=== PATIENT | female | born 1995 | race Caucasian/White ===

== ENCOUNTER 2018-12-18 21:23 | Emergency (ER) | payer MEDICAID ==
[~2018-12-18] VITALS: Ht 162.6 cm; Wt 104.3 kg
[2018-12-18 21:27] VITALS: BP 133/76
--- NOTE | 2018-12-18 21:43 | NUR ---
PT TAKEN TO BED 8
--- NOTE | 2018-12-18 21:50 | NUR ---
X-RAY AT BEDSIDE.
--- NOTE | 2018-12-18 21:52 | NUR ---
PT ED C/O ANXIETY X TODAY. PT REPORTS PAIN TO L SIDED CHEST UPON INSPIRATION. NO S/S OF DISTRESS. RESPIRATIONS EVEN AND UNLABORED. PT PLACED IN BED, PENDING MD GARDNER. PMH--DENIES
[2018-12-18 22:28] VITALS: BP 133/76
--- NOTE | 2018-12-18 22:29 | NUR ---
Patient discharged with v/s stable. Written and verbal after care instructions given and explained. Patient verbalized understanding. Ambulatory with steady gait. All questions addressed prior to discharge. Advised to follow up with PMD.
== END 2018-12-18 22:29 | disposition home or self-care (01) ==
LOC: MED 21:23
DX: R07.89 Other chest pain (principal); R06.02 Shortness of breath; F41.9 Anxiety disorder, unspecified
CPT/HCPCS: 71045; 99283; Q0092; 93005

== ENCOUNTER 2019-02-25 12:38 | Emergency (ER) | payer MEDICAID ==
[~2019-02-25] VITALS: Ht 162.6 cm; Wt 117.9 kg
[2019-02-25 13:17] VITALS: BP 129/58
--- NOTE | 2019-02-25 13:33 | NUR ---
PT AMBULATED TO BED10
--- NOTE | 2019-02-25 13:40 | NUR ---
PT C/O FEELING COLD AND HOT FLUSHES, N/V/D, HEADACHE 07/09 x 3 days. Abd sft, round, nontender, bowel sounds present x 4 quadrants. Denies CP/SOB. Bed in low position/locked, placed on monitor, urine obtained at this time.
--- NOTE | 2019-02-25 14:10 | NUR ---
PER DR VELASQUEZ, DO NOT START IV, HE WILL SWITCH THE ROUTE OF THE MEDICATIONS
[2019-02-25] MEDS ORDERED: ONDANSETRON 4 MG/2 ML VIAL IVP ONE (14:15)
[2019-02-25] MEDS ORDERED: KETOROLAC 30 MG/ML VIAL IM ONE ×2 (14:20→15:00)
[2019-02-25] MEDS ORDERED: NACL 0.9% 1,000 ML IV ONE (14:45)
[2019-02-25] MEDS ORDERED: ONDANSETRON 4 MG ODT PO ONE (15:00)
--- NOTE | 2019-02-25 15:07 | NUR ---
LAB AT BEDSIDE
[2019-02-25 15:40] LABS: BASOPHILS % (AUTO) 0.3 % (0.0-2.0); EOSINOPHILS # (AUTO) 0.1 K/uL (0-0.4); EOSINOPHILS % (AUTO) 1.7 % (0.0-4.0); HEMATOCRIT 39.6 % (36-48); HEMOGLOBIN 13.4 g/dL (12.0-16.0); LYMPHOCYTES # (AUTO) 1.8 K/uL (2.5-16.5); LYMPHOCYTES % (AUTO) 28.2 % (20.5-51.1); MEAN CORPUSCULAR HEMOGLOBIN 33 pg (27-31); MEAN CORPUSCULAR HGB CONC 34 g/dL (33-37); MEAN CORPUSCULAR VOLUME 96.5 fL (80-94); MONOCYTES # (AUTO) 0.5 K/uL (0.8-1.0); MONOCYTES % (AUTO) 7.4 % (1.7-9.3); NEUTROPHILS % (AUTO) 62.4 % (42.2-75.2); PLATELET COUNT (AUTO) 241 K/uL (140-450); RED BLOOD CELL COUNT(AUTO) 4.11 MIL/uL (4.20-5.40); RED CELL DISTRIBUTION WIDTH 13.4 % (11.6-13.7); WHITE BLOOD COUNT (AUTO) 6.4 K/uL (4.8-10.8)
[2019-02-25 15:47] LABS: ANION GAP 12.5 (8-16); CARBON DIOXIDE 25.4 mmol/L (21-32); CREATININE 0.7 mg/dL (0.6-1.3); POTASSIUM 3.9 mmol/L (3.5-5.1)
[2019-02-25 15:57] LABS: ALBUMIN 3.2 g/dL (3.4-5.0); TOTAL BILIRUBIN 0.1 mg/dL (0.0-1.0)
--- NOTE | 2019-02-25 16:09 | NUR ---
PT RESTING IN BED, PT STATES MEDICATION PROVIDED RELIEF, PAIN LEVEL 2/10 AT THIS TIME.
[2019-02-25 16:18] VITALS: BP 125/70
--- NOTE | 2019-02-25 16:18 | NUR ---
Patient discharged with v/s stable. Written and verbal after care instructions given and explained. Patient alert, oriented and verbalized understanding of instructions. Ambulatory with steady gait. All questions addressed prior to discharge. ID band removed. Patient advised to follow up with PMD. Rx of ZOFRAN, LOPERAMIDE, TYLENOL given. Patient educated on indication of medication including possible reaction and side effects. Opportunity to ask questions provided and answered.
== END 2019-02-25 16:18 | disposition home or self-care (01) ==
LOC: MED 12:38
DX: R11.2 Nausea with vomiting, unspecified (principal); R10.31 Right lower quadrant pain; R19.7 Diarrhea, unspecified
CPT/HCPCS: 36415; 74176; 80053; 81002; 81025; 83690; 85025; 96372; 99284; J1885; Q0162; J2405

== ENCOUNTER 2023-12-10 21:16 | Emergency (ER) | payer MEDICAID ==
[~2023-12-10] VITALS: Ht 162.6 cm; Wt 130.6 kg
[2023-12-10 21:30] VITALS: BP_SYST 12; BP_SYST 124; BP_DIAS 79; PULSE 78; RESP 16; TEMP 98.6; O2SAT 98
[2023-12-10] MEDS ORDERED: WATER STERILE 10 ML MC ONE (22:18)
[2023-12-10] MEDS ORDERED: methylPREDNISolone SS 125 MG/2 ML VIAL ONE (22:18)
[2023-12-10] MEDS: methylPREDNISolone SS 125 MG in WATER STERILE 2 ML IM ONE (22:26)
[2023-12-10 22:32] VITALS: BP 123/77; PULSE 73; RESP 16
[2023-12-10 22:51] VITALS: O2SAT 98
[2023-12-10 22:51] LABS: BASOPHILS % (AUTO) 0.2 % (0.0-2.0); EOSINOPHILS # (AUTO) 0.1 K/uL (0-0.4); HEMATOCRIT 40.3 % (36-48); HEMOGLOBIN 13.8 g/dL (12.0-16.0); LYMPHOCYTES # (AUTO) 2.4 K/uL (2.5-16.5); LYMPHOCYTES % (AUTO) 31.3 % (20.5-51.1); MEAN CORPUSCULAR HEMOGLOBIN 33 pg (27-31); MEAN CORPUSCULAR HGB CONC 34 g/dL (33-37); MEAN CORPUSCULAR VOLUME 94.7 fL (80-94); MONOCYTES # (AUTO) 0.4 K/uL (0.8-1.0); MONOCYTES % (AUTO) 5.7 % (1.7-9.3); NEUTROPHILS # (AUTO) 4.8 K/uL (1.8-7.7); NEUTROPHILS % (AUTO) 61.8 % (42.2-75.2); PLATELET COUNT (AUTO) 265 K/uL (140-450); RED BLOOD CELL COUNT(AUTO) 4.26 MIL/uL (4.20-5.40); RED CELL DISTRIBUTION WIDTH 13.5 % (11.6-13.7); WHITE BLOOD COUNT (AUTO) 7.8 K/uL (4.8-10.8)
[2023-12-10 23:16] LABS: ANION GAP 14.7 (8-16); CALCIUM 8.6 mg/dL (8.5-10.1); CREATININE 0.7 mg/dL (0.6-1.3); POTASSIUM 3.7 mmol/L (3.5-5.1)
[2023-12-11] MEDS ORDERED: FAMO-92 PO (00:02)
[2023-12-11] MEDS ORDERED: FEXO180T82 PO (00:02)
[2023-12-11] MEDS ORDERED: METH4TAB1 PO (00:02)
== END 2023-12-11 00:10 | disposition home or self-care (01) ==
LOC: MED 21:16
DX: L50.9 Urticaria, unspecified (principal); Z79.899 Other long term (current) drug therapy
CPT/HCPCS: 36415; 80048; 81025; 84550; 85025; 96374; 99283; J2930